=== PATIENT | female | born 1980 | race Caucasian/White ===

== ENCOUNTER 2022-11-04 15:59 | Emergency (ER) | payer OTHER, SELFPAY ==
[2022-11-04] VITALS (7 sets, daily range): BP systolic 95–114; BP diastolic 59–75; PULSE 66–87; RESP 12; TEMP 36.4; O2SAT 99–100; BMI 251.3
--- NOTE | 2022-11-04 16:08 | CRLHL7_ITS ---
For Patients: As a result of the Cures Act, medical imaging exams and procedure reports are released immediately into your electronic medical record. You may view this report before your referring provider. If you have questions, please contact your health care provider. HISTORY: Chest tightness. Syncope. History of prior pulmonary embolism. TECHNIQUE: Intravenous contrast enhanced CT of the chest. 95 mL Isovue-370 intravenous contrast administered. COMPARISON: 07/29/2020. FINDINGS: There is no acute pulmonary embolism. No thoracic aortic aneurysm or dissection. No pericardial effusion. No enlarged mediastinal or hilar lymph nodes. No enlarged axillary lymph nodes. No acute lung infiltrate or pulmonary edema. No pneumothorax or pleural effusion. No acute fractures. IMPRESSION: 1. No acute pulmonary embolism. 2. No acute lung infiltrate. Dictated by Arcadio Tejeda MD @ 11/04/2022 5:25:39 PM Please note that all CT scans at this facility use dose modulation, iterative reconstruction, and/or weight-based dosing when appropriate to reduce radiation dose to as low as reasonably achievable. Dictated by: Arcadio Tejeda MD @ 11/04/2022 17:25:42 (Electronically Signed)
[2022-11-04 16:22] LABS: Basophils Absolute Auto 0.04 K/uL (0.00-0.30); Basophils Percent Auto 0.4 % (0.0-3.0); Eosinophils Absolute Auto 0.28 K/uL (0.00-0.50); Hematocrit 42.2 % (33.0-51.0); Hemoglobin* 14.1 gm/dL (12.0-16.0); Immature Granulocytes Abs Auto 0.01 K/uL (0.00-0.30); Immature Granulocytes Pct Auto 0.1 %; Lymphocytes Absolute Auto 3.54 K/uL (0.90-2.90); Lymphocytes Percent Auto 37.5 % (20-44); Mean Corpuscular HGB Conc 33 gm/dL (32-36); Mean Corpuscular Hemoglobin 30 pg (26-34); Mean Corpuscular Volume 89 fL (80-100); Monocytes Percent Auto 9.4 % (0.0-11.0); Neutrophils Absolute Auto 4.68 K/uL (1.7-7.0); Neutrophils Percent Auto 49.6 % (42.0-72.0); Platelet Count* 370 K/uL (140-440); RDW Coefficient of Variation % 13.1 % (11.5-15.5); Red Blood Count 4.72 m/uL (4.00-5.20); White Blood Count* 9.44 K/uL (4.50-11.00)
[2022-11-04 16:29] LABS: Slide Review Reflex No
--- NOTE | 2022-11-04 16:38 | ED_ITS ---
HPI - General Adult General Time Seen by Provider: 16:38 Date Seen: 11/04/22 Chief complaint: Weakness Stated complaint: Pulmonary Embolism Concerns Time Seen by Provider: 11/04/22 16:07 Source: patient Mode of arrival: wheelchair Limitations: physical limitation History of Present Illness HPI narrative: Patient is a 39-year-old female sees Dr. Millard [facility]. She reports she has had chronic weakness, chronic neurologic weakness. She has had a history of cervical disc replacement for ?cervical angina? at neck pain that gave her chest pain. She denies fevers chills, has felt more weak over last couple days and also had some chest symptoms over the last couple of days where she had similar symptoms when she had pulmonary emboli per she has a history of factor 5 laden mutation. She has cared for the line a clinic as mention. She is generally fairly weak per her and her history, and she does not walk very much, she is not loaded noted any leg swelling or edema, no fevers or chills as mention. No dysuria frequency no diarrhea. Patient has no chest pain presently, O2 sat is 100%. Related Data Home Medications Medication Instructions Recorded Confirmed No Known Home Medications 11/04/22 11/04/22 Allergies Allergy/AdvReac Type Severity Reaction Status Date / Time No Known Drug Allergies Allergy Verified 11/04/22 16:17 Review of Systems Status of ROS: Reports: 6 or more systems reviewed and unremarkable except as noted in History and below [facility] Social History Smoking Status: Never smoker How often do you have a drink containing alcohol: never AUDIT-C Alcohol total score: 0 Non-prescribed substance use: denies use Exam Narrative: Exam Narrative: Objective: Patient's vital signs unremarkable, she is awake and alert and ta lking She suddenly just tipped over in the bed and slumped and the nurses put her supine on the bed and she was awake and talking, in fact correcting her about some of her medical history. She was able to relate her entire story very slightly. She is most concerned about a pulmonary embolus. HEENT is unremarkable no facial asymmetry Chest clear heart rate and rhythm regular without murmur Abdomen benign soft Extremities are no edema neurologic grossly nonfocal. Const: Vital Signs, click to edit/add: Vital Signs - 24 hr 11/04/22 16:00 11/04/22 16:08 11/04/22 16:30 Temperature 97.5 F L Pulse Rate Pulse Rate [Pulse Oximeter] 67 Respiratory Rate 12 Blood Pressure 102/59 L Blood Pressure [Le ft Upper Arm] 114/75 Pulse Oximetry 99 100 Oxygen Delivery Me thod Room Air 11/04/22 16:43 11/04/22 17:23 11/04/22 17:30 Temperature Pulse Rate 66 69 78 Pulse Rate [Pulse Oximeter] Respiratory Rate Blood Pressure Blood Pressure [Le ft Upper Arm] Pulse Oximetry 100 100 99 Oxygen Delivery Me thod 11/04/22 17:32 Temperature Pulse Rate 87 Pulse Rate [Pulse Oximeter] Respiratory Rate Blood Pressure 95/74 Blood Pressure [Le ft Upper Arm] Pulse Oximetry 100 Oxygen Delivery Me thod Course Vital Signs Vital signs: Initial Vital Signs Temperature 97.5 F L 11/04/22 16:00 Temperature Source Temporal Artery Scan 11/04/22 16:00 Pulse Rate 67 11/04/22 16:00 Pulse Rhythm 11/04/22 16:00 Respiratory Rate 12 11/04/22 16:00 Blood Pressure 114/75 11/04/22 16:00 Blood Pressure Mean 88 11/04/22 16:00 Blood Pressure Position Supine 11/04/22 16:00 Pulse Oximetry 99 11/04/22 16:00 Oxygen Delivery Method 11/04/22 16:00 Vital Signs Temperature 97.5 F L 11/04/22 16:00 Pulse Rate 67 11/04/22 16:00 Respiratory Rate 12 11/04/22 16:00 Blood Pressure 114/75 11/04/22 16:00 Pulse Oximetry 99 11/04/22 16:00 Oxygen Delivery Method 11/04/22 16:00 Temperature 97.5 F L 11/04/22 16:00 Pulse Rate 87 11/04/22 17:32 Respiratory Rate 12 11/04/22 16:00 Blood Pressure 95/74 11/04/22 17:32 Pulse Oximetry 100 11/04/22 17:32 Oxygen Delivery Method 11/04/22 16:00 Medical Decision Making MDM Narrative Medical decision making narrative: Patient presents with a complex medical history including some type of [employer] issue which causes significant weakness, apparently has been diagnosed by the [facility]. She has also had cervical surgery. 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 She is fairly sedentary. I think our job today is to rule out acute life-threatening illness such as acute coronary syndrome, pulmonary, dehydration, infection. Will check triple swab, CT scan of the chest with IV contrast, test, laboratory studies, IV fluid 1 L OB given I normal saline. Disposition pending above-mentioned findings Addendum: My read shows normal sinus rhythm there is nonspecific changes, her troponin is negative, her D-dimer is negative, her CT scan of the chest is negative. No evidence of pulmonary emboli also there was no lung infiltrate. Her laboratory studies look reassuring, inflammatory markers are negative. At this point she is relieved by these findings and will follow up with regular doctor as needed, light activity, she has been bothered by this chest discomfort that comes from her neck diagnosed by would [facility]. She will follow-up with Dr. Justice regarding this. I think this point she is safe to go home. Push fluids, observation, return as needed. Lab Data Labs: Lab Results 11/04/22 11/04/22 11/04/22 Range/Units 16:05 16:05 16:05 WBC 9.44 (4.50-11.00) K/uL RBC 4.72 (4.00-5.20) m/uL Hgb 14.1 (12.0-16.0) gm/dL Hct 42.2 (33.0-51.0) % MCV 89 (80-100) fL MCH 30 (26-34) pg MCHC 33 (32-36) gm/dL RDW Coeff of Jeremy 13.1 (11.5-15.5) % Plt Count 370 (140-440) K/uL Neut % (Auto) 49.6 (42.0-72.0) % Lymph % (Auto) 37.5 (20-44) % Sequoyah % (Auto) 9.4 (0.0-11.0) % Eos % (Auto) 3.0 (0.0-7.0) % Baso % (Auto) 0.4 (0.0-3.0) % Neut # (Auto) 4.68 (1.7-7.0) K/uL Lymph # (Auto) 3.54 H (0.90-2.90) K/uL Sequoyah # (Auto) 0.90 (0.00-0.90) K/UL Eos # (Auto) 0.28 (0.00-0.50) K/uL Baso # (Auto) 0.04 (0.00-0.30) K/uL INR 0.91 (0.91-1.10) APTT 30 (23-33) Seconds D-Dimer Quant (PE/DVT) 0.39 (0.00-0.50) ug/ml Sodium 138 (135-149) mmol/L Potassium 3.6 (3.6-5.1) mmol/L Chloride 107 (96-114) mmol/L Carbon Dioxide 21 (20-32) mmol/L BUN 15 (5-24) mg/dL Creatinine 0.7 (0.5-1.5) mg/dL Estimated Creat Clear 93.25 Estimated GFR 110 ml/min Glucose 91 (60-115) mg/dL Calcium 9.4 (8.4-10.6) mg/dL Total Bilirubin 0.5 (0.1-1.5) mg/dL Direct Bilirubin 0.1 (0.0-0.5) mg/dL AST 23 (12-35) U/L ALT 27 (4-35) U/L Alkaline Phosphatase 62 (40-150) U/L Troponin I < 0.01 L (0.01-0.04) ng/mL C-Reactive Protein < 0.5 L (0.5-1.0) mg/dL NT-Pro-B Natriuret Pep 49 pg/mL Total Protein 8.0 (6.0-8.3) g/dL Albumin 4.6 (3.3-5.0) g/dL HCG, Qual (Negative) SARS-CoV-2 (PCR) (Negative) Influenza Type A (PCR) (Negative) Influenza Type B (PCR) (Negative) RSV (PCR) (Negative) 11/04/22 11/04/22 Range/Units 16:05 16:15 WBC (4.50-11.00) K/uL RBC (4.00-5.20) m/uL Hgb (12.0-16.0) gm/dL Hct (33.0-51.0) % MCV (80-100) fL MCH (26-34) pg MCHC (32-36) gm/dL RDW Coeff of Jeremy (11.5-15.5) % Plt Count (140-440) K/uL Neut % (Auto) (42.0-72.0) % Lymph % (Auto) (20-44) % Sequoyah % (Auto) (0.0-11.0) % Eos % (Auto) (0.0-7.0) % Baso % (Auto) (0.0-3.0) % Neut # (Auto) (1.7-7.0) K/uL Lymph # (Auto) (0.90-2.90) K/uL Sequoyah # (Auto) (0.00-0.90) K/UL Eos # (Auto) (0.00-0.50) K/uL Baso # (Auto) (0.00-0.30) K/uL INR (0.91-1.10) APTT (23-33) Seconds D-Dimer Quant (PE/DVT) (0.00-0.50) ug/ml Sodium (135-149) mmol/L Potassium (3.6-5.1) mmol/L Chloride (96-114) mmol/L Carbon Dioxide (20-32) mmol/L BUN (5-24) mg/dL Creatinine (0.5-1.5) mg/dL Estimated Creat Clear Estimated GFR ml/min Glucose (60-115) mg/dL Calcium (8.4-10.6) mg/dL Total Bilirubin (0.1-1.5) mg/dL Direct Bilirubin (0.0-0.5) mg/dL AST (12-35) U/L ALT (4-35) U/L Alkaline Phosphatase (40-150) U/L Troponin I (0.01-0.04) ng/mL C-Reactive Protein (0.5-1.0) mg/dL NT-Pro-B Natriuret Pep pg/mL Total Protein (6.0-8.3) g/dL Albumin (3.3-5.0) g/dL HCG, Qual Negative (Negative) SARS-CoV-2 (PCR) Negative SARS-CoV-2 (Negative) Influenza Type A (PCR) Negative PCR FLU A (Negative) Influenza Type B (PCR) Negative PCR FLU B (Negative) RSV (PCR) Negative PCR RSV (Negative) Discharge Plan Discharge Clinical Impression: Weakness generalized, Chest discomfort Patient Disposition: Home w/ Parent or Adult Condition: Improved Additional Instructions: Light activity, fluids, recheck with primary care in the next 2 days certainly sooner change concerns worsening, Return to the ED. Activity Level: Light activity Discharge Diet: Regular Prescriptions: No Action No Known Home Medications Follow Up/Referrals: Ross Stuart MD [Primary Care Provider] - Stand Alone Forms: [employer] Info Instructions
[2022-11-04] MEDS: 0.9 % SODIUM CHLORIDE 1000 ml 1,000 ML 6000 ML IV (16:40)
[2022-11-04 16:43] LABS: Albumin* 4.6 g/dL (3.3-5.0); Chloride* 107 mmol/L (96-114)
[2022-11-04 16:44] LABS: Potassium* 3.6 mmol/L (3.6-5.1); Sodium* 138 mmol/L (135-149)
[2022-11-04 16:45] LABS: INR 0.91 (0.91-1.10); Prothrombin Time 12.8 Seconds
[2022-11-04 16:46] LABS: Creatinine* 0.7 mg/dL (0.5-1.5); Est. Creatinine Clearance* 93.25; Estimated Glomerular Filt Rate 110 ml/min; HCG Qualitative Serum* Negative (Negative); Partial Thromboplastin Time* 30 Seconds (23-33)
[2022-11-04 16:47] LABS: Alanine Aminotransferase* 27 U/L (4-35); Alkaline Phosphatase* 62 U/L (40-150); Aspartate Amino Transferase* 23 U/L (12-35); Bilirubin Direct* 0.1 mg/dL (0.0-0.5); Bilirubin Total* 0.5 mg/dL (0.1-1.5); Blood Urea Nitrogen* 15 mg/dL (5-24); Calcium* 9.4 mg/dL (8.4-10.6); Carbon Dioxide* 21 mmol/L (20-32); Glucose* 91 mg/dL (60-115)
[2022-11-04 16:48] LABS: D Dimer Quantitative* 0.39 ug/ml (0.00-0.50)
[2022-11-04 16:59] LABS: PCR FLU A Negative PCR FLU A (Negative); PCR FLU B Negative PCR FLU B (Negative); PCR RSV Negative PCR RSV (Negative)
[2022-11-04 17:00] LABS: SARS PCR* Negative SARS-CoV-2 (Negative)
[2022-11-04 17:01] LABS: C Reactive Protein* < 0.5 mg/dL (0.5-1.0); NT Pro B Type NatriureticPept* 49 pg/mL; Troponin I* < 0.01 ng/mL (0.01-0.04)
== END 2022-11-04 18:02 | disposition home or self-care (01) ==
PROVIDERS: Emergency Provider Family Medicine; PCP Surgery
DX: R53.1 Weakness (principal); R07.89 Other chest pain
CPT/HCPCS: 36415; 71260; 80048; 80076; 83880; 84484; 84703; 85025; 85379; 85610; 85730; 86140; 87502; 87634; 87635; 93005; 94761; 99284; 99285; J7030; Q9967

== ENCOUNTER 2024-02-19 14:26 | Outpatient (CLI) | payer OTHER, SELFPAY ==
--- NOTE | 2024-02-19 14:40 | MM_ITS ---
Patient: CHARITY HAGEN Facility:?[facility] R[facility] Patient ID:?[id number] Site Patient ID:?[id number]. Site :?1980 Study:?XRay-Breast Bilateral 3D W/CAD-02/19/2024 3:37:16 PM Ordering Physician:Thalia January Final Report: BILATERAL DIGITAL SCREENING MAMMOGRAM WITH TOMOSYNTHESIS AND COMPUTER-AIDED DETECTION CLINICAL HISTORY: Routine screening exam. COMPARISON: None. TECHNIQUE: Digital mammogram in CC and MLO projections including computer-aided detection (CAD). Tomosynthesis utilized. BREAST COMPOSITION: The breasts are heterogeneously dense, which may obscure small masses. FINDINGS: RIGHT Breast: Nodular density upper outer quadrant 4 cm from the nipple. LEFT Breast: No suspicious findings. IMPRESSION: RIGHT breast asymmetry/mass. RECOMMENDATIONS: Additional mammographic views of the RIGHT breast including 3D spot compression CC/MLO. RIGHT breast ultrasound may also be required. BI-RADS Category 0: Incomplete: Need Additional Imaging Evaluation and/or Prior Mammograms for Comparison The [facility] will contact the patient for follow-up. A lay language report of this examination will be provided to the patient. Dictated by Abelino Onofre MD @ 02/20/2024 12:17:38 PM irenej/Dictated by: Abelino Onofre MD @ 02/20/2024 12:17:00 PM Signed by:?Abelino Onofre MD @02/20/2024 1:02:14 PM (Electronic Signature)
== END 2024-02-19 14:27 | disposition home or self-care (01) ==
LOC: MAMMO 14:26
PROVIDERS: PCP Surgery; Visit Provider Physician Assistant
DX: Z12.31 Encounter for screening mammogram for malignant neoplasm of breast (principal); N63.10 Unspecified lump in the right breast, unspecified quadrant
CPT/HCPCS: 77063; 77067

== ENCOUNTER 2024-03-10 10:31 | Outpatient (CLI) | payer OTHER, SELFPAY ==
--- NOTE | 2024-03-10 10:45 | MM_ITS ---
Patient: CHARITY HAGEN Facility:?[facility] Patient ID:?[id number] Site Patient ID:?[id number] Site :?1980 Study:?XRay-Breast Right 3D W/CAD-03/10/2024 11:04:26 AM Ordering Physician:Thalia January Final Report: DIGITAL DIAGNOSTIC RIGHT MAMMOGRAM USING TOMOSYNTHESIS AND COMPUTER-AIDED DETECTION RIGHT BREAST ULTRASOUND CLINICAL HISTORY: RIGHT breast mass/asymmetry. COMPARISON: 02/19/2024. TECHNIQUE: Digital RIGHT mammogram in two projections. Tomosynthesis and computer-aided detection utilized. Real-time ultrasound imaging of RIGHT breast with imaging documentation. Scanning was performed by both the technologist and the radiologist. BREAST COMPOSITION: The breast is heterogeneously dense, which may obscure small masses. FINDINGS: 3D spot compression CC/MLO RIGHT breast mammogram images submitted. Persistent nodular density within the upper outer quadrant RIGHT breast with architectural distortion. No suspicious calcifications. Targeted RIGHT breast ultrasound performed. At 10 o`clock 3 cm from the nipple there is a small hypoechoic solid nodule measuring 6 millimeters. Adjacent fibrocystic changes are present. IMPRESSION: Solid 6-millimeter nodule RIGHT breast 10 o`clock 3 cm from the nipple. RECOMMENDATIONS: Ultrasound-guided core needle biopsy. Results and recommendations discussed with the patient. BI-RADS Category 4: Suspicious A lay language report of this examination will be provided to the patient. Dictated by Abelino Onofre MD @ 03/10/2024 11:29:43 AM jj/Dictated by: Abelino Onofre MD @ 03/10/2024 11:29:00 AM Signed by:?Abelino Onofre MD @03/10/2024 1:27:16 PM (Electronic Signature)
--- NOTE | 2024-03-10 11:15 | US_ITS ---
Patient: CHARITY HAGEN Facility:?[facility] Patient ID:?[id number] Site Patient ID:?[id number] Site :?1980 Study:?XRay-Breast Right 3D W/CAD-03/10/2024 11:04:26 AM Ordering Physician:Thalia January Final Report: DIGITAL DIAGNOSTIC RIGHT MAMMOGRAM USING TOMOSYNTHESIS AND COMPUTER-AIDED DETECTION RIGHT BREAST ULTRASOUND CLINICAL HISTORY: RIGHT breast mass/asymmetry. COMPARISON: 02/19/2024. TECHNIQUE: Digital RIGHT mammogram in two projections. Tomosynthesis and computer-aided detection utilized. Real-time ultrasound imaging of RIGHT breast with imaging documentation. Scanning was performed by both the technologist and the radiologist. BREAST COMPOSITION: The breast is heterogeneously dense, which may obscure small masses. FINDINGS: 3D spot compression CC/MLO RIGHT breast mammogram images submitted. Persistent nodular density within the upper outer quadrant RIGHT breast with architectural distortion. No suspicious calcifications. Targeted RIGHT breast ultrasound performed. At 10 o`clock 3 cm from the nipple there is a small hypoechoic solid nodule measuring 6 millimeters. Adjacent fibrocystic changes are present. IMPRESSION: Solid 6-millimeter nodule RIGHT breast 10 o`clock 3 cm from the nipple. RECOMMENDATIONS: Ultrasound-guided core needle biopsy. Results and recommendations discussed with the patient. BI-RADS Category 4: Suspicious A lay language report of this examination will be provided to the patient. Dictated by Abelino Onofre MD @ 03/10/2024 11:29:43 AM jj/Dictated by: Abelino Onofre MD @ 03/10/2024 11:29:00 AM Signed by:?Abelino Onofre MD @03/10/2024 1:27:16 PM (Electronic Signature)
== END 2024-03-10 10:32 | disposition home or self-care (01) ==
LOC: MAMMO 10:31
PROVIDERS: PCP Surgery; Visit Provider Physician Assistant
DX: N63.10 Unspecified lump in the right breast, unspecified quadrant (principal); R92.8 Other abnormal and inconclusive findings on diagnostic imaging of breast
CPT/HCPCS: 76642; 77065; G0279

== ENCOUNTER 2024-03-19 10:03 | Outpatient (CLI) | payer OTHER, SELFPAY ==
--- NOTE | 2024-03-19 10:15 | US_ITS ---
Patient: CHARITY HAGEN Facility:?[facility] Patient ID:?[id number] Site Patient ID:?[id number]. Site :?1980 Study:?US-Breast Right RT BREAST BIOPSY / DSM TO READ-03/19/2024 11:51:59 AM Ordering Physician:Awilda Hawkins Final Report: ULTRASOUND-GUIDED BREAST BIOPSY AND POST-BIOPSY DIGITAL MAMMOGRAM FOR BIOPSY MARKER PLACEMENT CLINICAL HISTORY: Indeterminate solid nodule. COMPARISON STUDIES: 03/10/2024. TECHNIQUE: Real-time ultrasound with image documentation was used for targeting the breast lesion. Core biopsy specimens were obtained using an automated gun with a 18- gauge biopsy needle. Post-biopsy CC and ML digital mammograms were obtained to document position of the biopsy marker. CONSENT and TIME OUT: The procedure, risks, and alternatives were explained to the patient and a consent was signed. [place] Protocol was followed including pre-procedure verification that relevant information/documentation was available, reviewed and properly matched to the patient; consent accurate and complete; and equipment and supplies available. Time Out was conducted just prior to starting procedure to verify the four required elements: patient identity, correct side/site marked (if applicable), procedure, relevant images/results properly labeled and displayed (if applicable). PROCEDURE: The patient was positioned supine on the ultrasound table. The breast was prepped with ChloraPrep. 6 cc of 1 percent lidocaine used for local anesthesia. Core samples were obtained. A sterile metal biopsy clip was placed percutaneously to becki the lesion position within the breast. The specimens were placed in 10% formalin and sent to the pathology department. Pressure was held on the biopsy site until all bleeding subsided. The skin incision was closed with Steri-Strips. An ice pack was positioned over the biopsy site. Post-biopsy instructions were reviewed with the patient, and a written copy was given to her. LATERALITY: RIGHT breast. LESION: Hypoechoic solid nodule measuring 6 millimeters at 10 o`clock 3 cm from the nipple. SUSPICION FOR MALIGNANCY: Low. NUMBER OF SAMPLES: 5. BIOPSY CLIP SHAPE: Oval. PROXIMITY OF CLIP TO TARGET: Within the lesion. IMPRESSION: Ultrasound-guided breast biopsy. When the pathology report is available, an addendum to this report will be made. ACR not applicable Dictated by Abelino Onofre MD @ 03/19/2024 12:35:14 PM jj/Dictated by: Abelino Onofre MD @ 03/19/2024 12:35:00 PM Signed by:?Abelino Onofre MD @03/19/2024 12:54:56 PM (Electronic Signature)
--- NOTE | 2024-03-19 11:00 | MM_ITS ---
Patient: CHARITY HAGEN Facility:?[facility] Patient ID:?[id number] Site Patient ID:?[id number]. Site :?1980 Study:?XRay-Breast Right 2D w/ CAD POST CLIP PLACEMENT-03/19/2024 10:59:04 AM Ordering Physician:?Sade Hawkins Final Report: PLEASE SEE ULTRASOUND-GUIDED RIGHT BREAST BIOPSY PERFORMED SAME DAY CRL:jerrod elder/Dictated by: Abelino Onofre MD @ 03/19/2024 12:30:00 PM Signed by:?Abelino Onofre MD @03/19/2024 12:54:59 PM (Electronic Signature)
== END 2024-03-19 10:04 | disposition home or self-care (01) ==
LOC: US 10:04
PROVIDERS: PCP Surgery; Visit Provider Internal Medicine
DX: N63.10 Unspecified lump in the right breast, unspecified quadrant (principal); R92.8 Other abnormal and inconclusive findings on diagnostic imaging of breast
CPT/HCPCS: 19083; 77065; 88305; A4648; A4649